=== PATIENT | female | born 1960 | race African-American/Black ===

== ENCOUNTER 2018-10-11 10:43 | Day surgery (SDC) | payer OTHER ==
[2018-10-08 16:11] VITALS: BMI 30.7
[2018-10-11 12:23] VITALS: TEMP 98
[2018-10-11 13:13] VITALS: BP 129/88; PULSE 70
== END 2018-10-11 12:55 | disposition home or self-care (01) ==
LOC: FASU 10:43
PROVIDERS: ATTEND Internal Medicine Gastroenterology
PROC: 0DJD8ZZ Inspection of Lower Intestinal Tract, Via Natural or Artificial Opening Endoscopic (ICD-10-PCS; principal; 2018-10-11 11:57)
DX: Z12.11 Encounter for screening for malignant neoplasm of colon (principal); K57.30 Diverticulosis of large intestine without perforation or abscess without bleeding

== ENCOUNTER 2022-07-13 17:58 | Emergency (ER) | payer OTHER ==
[2022-07-13 18:02] VITALS: BP 132/81; PULSE 74; RESP 18; TEMP 98.3; BMI 30.7
[2022-07-13] MEDS ORDERED: LIDOCAINE 5% TOPICAL PATCH TP ONE (19:48)
[2022-07-13] MEDS ORDERED: LIDOCAINE 5% TOPICAL PATCH ONE (19:52)
[2022-07-13] MEDS ORDERED: LIDOCAINE PATCH REMOVAL MC SCH (22:00)
== END 2022-07-13 20:09 | disposition home or self-care (01) ==
LOC: JERFT 17:58
DX: B02.9 Zoster without complications (principal)
CPT/HCPCS: 99281-25